=== PATIENT | female | born 1970 | race Caucasian/White ===

== ENCOUNTER 2020-02-06 10:10 | Outpatient (CLI) | payer BC, SELFPAY ==
--- NOTE | 2020-02-06 | ECG_ITS ---
Measurements Intervals [place] Rate: 86 P: 54 NE: 184 QRS: 144 QRSD: 81 T: 30 QT: 372 QTc: 445 Interpretive Statements SINUS RHYTHM RIGHT AXIS DEVIATION DELAYED PRECORDIAL R/S TRANSITION LOW QRS VOLTAGE- DIFFUSE LEADS BORDERLINE T WAVE ABNORMALITY- INFERIOR LEADS BORDERLINE ECG Electronically Signed On 02-06-2020 11:15:52 CDT by Jung Gunn D.O.
--- NOTE | ~2020-02-06 | MM_ITS ---
EXAMINATION: MM screening darío BI w lidia HISTORY: Screening mammogram TECHNIQUE: Craniocaudal and mediolateral oblique 3-D tomosynthesis images were obtained and synthetic 2-D images were generated. CAD analysis was submitted and interpreted. COMPARISON: 08/04/2016 bilateral digital screening mammogram BREAST PARENCHYMAL COMPOSITION: The breasts are heterogeneously dense, which may obscure small masses . FINDINGS: There is no evidence of suspicious mass, calcification, or architectural distortion to sugg est malignancy in either breast. There has been no suspicious interval change. IMPRESSION: 1. No mammographic evidence of malignancy. 2. Recommend routine screening mammography in one year. BI-RADS Category 1: Negative Reviewed, dictated and finalized at location A.
[2020-02-06 10:53] LABS: Alanine Aminotransferase 18 U/L (4-35); Alkaline Phosphatase 38 U/L (38-126); Anion Gap 4 mmol/L (8-16); Aspartate Amino Transferase 31 U/L (14-36); Bilirubin,Total 0.3 mg/dL (0.2-1.3); Blood Urea Nitrogen 23 mg/dL (7-17); Calcium 9.3 mg/dL (8.4-10.2); Carbon Dioxide 32 mmol/L (22-30); Chloride 100 mmol/L (98-107); Cholesterol 175 mg/dL (0-200); Estimated Glomerular Filt Rate 58; Glucose 86 mg/dL (65-105); HDL Direct 55 mg/dL; Sodium 136 mmol/L (137-145); Triglycerides 64 mg/dL (<150)
[2020-02-06 11:03] LABS: LDL Cholesterol Direct 91 mg/dL
== END 2020-02-06 10:11 | disposition home or self-care (01) ==
PROVIDERS: PCP Family Medicine; Visit Provider Family Medicine
DX: F31.9 Bipolar disorder, unspecified (principal); E78.2 Mixed hyperlipidemia; Z01.810 Encounter for preprocedural cardiovascular examination; Z12.31 Encounter for screening mammogram for malignant neoplasm of breast
CPT/HCPCS: 36415; 77063; 77067; 80053; 80061; 93005

== ENCOUNTER 2020-03-01 16:45 | Outpatient (CLI) | payer BC, SELFPAY ==
[2020-03-01 16:58] LABS: Basophils Percent Auto 0.9 % (0.2-1.2); Eosinophils Percent Auto 0.2 % (0-4.4); Hematocrit 40.9 % (37.0-47.0); Hemoglobin 13.6 g/dL (12.0-15.0); Immature Granulocyte Absolute 0.01 K/mm3 (0.00-0.031); Immature Granulocyte Percent A 0.2 % (0-0.5); Lymphocytes Absolute Auto 1.05 K/mm3 (0.9-3.2); Lymphocytes Percent Auto 22.6 % (18.3-44.2); Mean Corpuscular HGB Conc 33.3 g/dl (32-36); Mean Corpuscular Hemoglobin 31.1 pg (26-34); Mean Corpuscular Volume 93.4 fl (80-100); Monocytes Absolute Auto 0.4 K/mm3 (0.1-0.6); Monocytes Percent Auto 9.1 % (2.6-8.5); Neutrophils Absolute Auto 3.1 K/mm3 (1.3-6.7); Platelet Count Result 256 k/mm3 (150-375); Red Blood Count 4.38 M/mm3 (4.2-5.4); Red Cell Distribution Width 13.2 % (11.5-14.5); White Blood Count 4.6 K/mm3 (4.5-10.0)
[2020-03-01 17:44] LABS: Free T4 Free Thyroxine 0.81 ng/mL (0.78-2.19)
[2020-03-01 18:31] LABS: Vitamin B12 > 1000.0 pg/mL (239-931)
== END 2020-03-01 16:46 | disposition home or self-care (01) ==
PROVIDERS: PCP Family Medicine; Visit Provider Physician Assistant
DX: R45.1 Restlessness and agitation (principal); E03.9 Hypothyroidism, unspecified; E04.9 Nontoxic goiter, unspecified; E53.8 Deficiency of other specified B group vitamins
CPT/HCPCS: 36415; 82607; 84439; 84443; 85025

== ENCOUNTER → 2020-08-14 08:46 | Outpatient (CLI) | payer BC, SELFPAY ==
--- NOTE | ~2020-08-14 | MR_ITS ---
EXAMINATION: MR shoulder RT wo con DATE: 08/14/2020 09:24 INDICATION: Right shoulder pain TECHNIQUE: Magnetic resonance imaging (MRI) of the right shoulder was performed without intravenous c ontrast. Sequences included axial PD-weighted FS FSE, coronal oblique PD-weighted FS FSE, coronal obl ique T2-weighted FS FSE, sagittal PD-weighted FS FSE, and sagittal T1-weighted SE. COMPARISON: None. FINDINGS: Coracoacromial arch: The acromion undersurface is curved in morphology (type II). The coracoacromial ligament is normal. A cromioclavicular joint is normal. Rotator cuff: Mild supraspinatus and infraspinatus tendinopathy without discrete tear. The teres minor tendon is no rmal. The subscapularis and teres minor tendons are normal. Normal rotator cuff muscle bulk and signa l. Biceps tendon, glenoid labrum and glenohumeral cartilage: Full-thickness tear of the long head biceps tendon which appears to occur at the junction of the intr a and extra articular portion of the tendon. Moderate tendinopathy and fraying along the proximal tea r margin. The distal tear margin is retracted approximately 8 cm more inferiorly. Glenoid labrum is n ormal. Glenohumeral cartilage is normal. Fluid: Minimal glenohumeral joint effusion. There is also small amount of fluid within the empty long head b iceps tendon sheath. No loose osteochondral bodies. Mild increased fluid signal in the subacromial/brooks bdeltoid bursa consistent with minimal bursitis. Bones: Normal marrow signal with no edema, fracture or abnormal marrow replacing process. IMPRESSION: 1. Full-thickness tear at the junction of the intra-articular and extra articular portions of the merritt g head biceps tendon with 8 cm inferior retraction of the distal tear margin. 2. Mild supraspinatus and infraspinatus tendinopathy without discrete tear. Reviewed, dictated and finalized at location A. OPERATOR IMPRESSION: 1. Full-thickness tear at the junction of the intra-articular and extra articul ar portions of the long head biceps tendon with 8 cm inferior retraction of the distal tear margin. 2. Mild supraspinatus and infraspinatus tendinopathy without discrete tear.
== END ==
PROVIDERS: PCP Family Medicine; Visit Provider Nurse Practitioner Family
DX: S46.111A Strain of muscle, fascia and tendon of long head of biceps, right arm, initial encounter (principal); X58.XXXA Exposure to other specified factors, initial encounter
CPT/HCPCS: 73221

== ENCOUNTER → 2020-09-10 00:51 | Outpatient (CLI) | payer BC, SELFPAY ==
[2020-09-10 20:24] LABS: SARS-CoV-2 RNA PCR Negative
== END ==
PROVIDERS: PCP Family Medicine; Visit Provider Orthopaedic Surgery
DX: Z01.812 Encounter for preprocedural laboratory examination (principal); Z20.822 Contact with and (suspected) exposure to COVID-19
CPT/HCPCS: C9803; U0003; U0005

== ENCOUNTER 2020-09-13 01:15 | Day surgery (SDC) | payer BC, SELFPAY ==
[2020-09-05 10:50] VITALS: BMI 27.3
--- NOTE | 2020-09-13 06:51 | WPDHPUPDATE1 ---
History and Physical Update Update Date/Time: 09/13/20 06:51 History and Physical has been reviewed, including an updated exam of the patient. There are NO changes in the patient's condition. Covid test negative. Risks, benefits, and alternatives have been discussed and questions answered. Patient agrees to proceed with procedure.
--- NOTE | 2020-09-13 07:48 | WPDANESEPP ---
Anes - Eval Pre Procedure Procedure: Operation Date: 09/13/20 09:30 Proposed Procedures p Right Middle Trigger Finger Release - Chris Farmer MD Date/Time: 09/13/20 07:48 Pre Op Diagnosis: right middle trigger finger Patient Data Age: 50 Gender: F Height: 1.6 m Weight: 70 kg Allergies Allergy/AdvReac Type Severity Reaction Status Date / Time No Known Allergies Allergy Mild Verified 09/13/20 07:37 Home Medications Medication Instructions Recorded Confirmed Type fluoxetine 20 mg tablet 20 mg PO DAILY #90 tablet 07/19/19 09/13/20 Rx lamotrigine 200 mg tablet 200 mg PO BID 01/10/20 09/13/20 History sumatriptan succinate 100 mg tablet See Rx Instructions PO .COMPLEX 06/04/20 09/05/20 Rx #10 tablet levothyroxine 100 mcg tablet 100 mcg PO DAILY #90 tablet 06/20/20 09/13/20 Rx ascorbic acid (vitamin C) [Vitamin 1 g PO DAILY 09/05/20 09/13/20 History C] cholecalciferol (vitamin D3) 50 mcg PO DAILY 09/05/20 09/13/20 History [Vitamin D3] cyanocobalamin (vitamin B-12) 1,000 mcg PO DAILY 09/05/20 09/13/20 History [Vitamin B-12] quetiapine 50 mg PO TID 09/05/20 09/13/20 History Patient hx anesthesia problems: none Family hx anesthesia problems: none PMFSH Past Medical History Medical History Anxiety Arthritis Avulsion fracture Biceps strain Biceps tendon rupture Bicipital tendinitis of right shoulder Bipolar 1 disorder Breast ptosis Depression Encounter for general adult medical examination without abnormal findings Exposure to phentermine Hyperthyroidism Hypothyroidism Metacarpophalangeal joint pain of right hand Micromastia Nasal drainage Psoriasis Right shoulder pain Right shoulder pain Skin laxity SLAP tear of shoulder Tendinitis of right rotator cuff Trigger finger of right hand Trigger point with back pain Vision abnormalities Family History Family History Mother Depression Father Family history of sleep apnea Social History Social History Social History: Smoking status: Never smoker Second hand tobacco smoke exposure: No Alcohol intake: current Drinks per week: 2 Substance use: never Substance use type: does not use Living arrangements: with family Gender identity (if verbalized by the patient): Female Spiritual care concerns: No Exam Day of Procedure 09/13/20 07:48
[2020-09-13] MEDS: ACETAMINOPHEN 500 MG TABLET 1000 MG PO (07:53)
[2020-09-13 08:08] VITALS: BP 114/88; PULSE 77; RESP 16; TEMP 36.3; O2SAT 98
[2020-09-13] MEDS: KETOROLAC 15 MG/ML VIAL (*BKC) IV PUSH (08:08)
--- NOTE | 2020-09-13 09:22 | SUR.PREOP ---
Discussed delay, voices understanding.
--- NOTE | 2020-09-13 09:58 | WPDANESEPPF ---
Anes - Initial Pre Proc Eval Procedure: Operation Date: 09/13/20 09:30 Proposed Procedures p Right Middle Trigger Finger Release - Chris Farmer MD Date/Time: 09/13/20 09:58 Surgeon: Chris Farmer MD Pre Op Diagnosis: right middle trigger finger Patient Data Age: 50 Gender: F Height: 5 ft 3 in Weight: 72.8 kg Last Vital Signs Temp 36.3 C L 09/13/20 08:08 Pulse 77 09/13/20 08:08 Resp 16 09/13/20 08:08 BP 114/88 09/13/20 08:08 Pulse Ox 98 09/13/20 08:08 Allergies Allergy/AdvReac Type Severity Reaction Status Date / Time No Known Allergies Allergy Mild Verified 09/13/20 07:37 Home Medications Medication Instructions Recorded Confirmed Type fluoxetine 20 mg tablet 20 mg PO DAILY #90 tablet 07/19/19 09/13/20 Rx lamotrigine 200 mg tablet 200 mg PO BID 01/10/20 09/13/20 History sumatriptan succinate 100 mg tablet See Rx Instructions PO .COMPLEX 06/04/20 09/05/20 Rx #10 tablet levothyroxine 100 mcg tablet 100 mcg PO DAILY #90 tablet 06/20/20 09/13/20 Rx ascorbic acid (vitamin C) [Vitamin 1 g PO DAILY 09/05/20 09/13/20 History C] cholecalciferol (vitamin D3) 50 mcg PO DAILY 09/05/20 09/13/20 History [Vitamin D3] cyanocobalamin (vitamin B-12) 1,000 mcg PO DAILY 09/05/20 09/13/20 History [Vitamin B-12] quetiapine 50 mg PO TID 09/05/20 09/13/20 History Patient hx anesthesia problems: none Family hx anesthesia problems: none PMFSH Past Medical History Medical History Anxiety Arthritis Avulsion fracture Biceps strain Biceps tendon rupture Bicipital tendinitis of right shoulder Bipolar 1 disorder Breast ptosis Depression Encounter for general adult medical examination without abnormal findings Exposure to phentermine Hyperthyroidism Hypothyroidism Metacarpophalangeal joint pain of right hand Micromastia Nasal drainage Psoriasis Right shoulder pain Right shoulder pain Skin laxity SLAP tear of shoulder Tendinitis of right rotator cuff Trigger finger of right hand Trigger point with back pain Vision abnormalities Family History Family History Mother Depression Father Family history of sleep apnea Social History Social History Social History: Smoking status: Never smoker Second hand tobacco smoke exposure: No Alcohol intake: current Drinks per week: 2 Substance use: never Substance use type: does not use Living arrangements: with family Gender identity (if verbalized by the patient): Female Spiritual care concerns: No Anes - Eval Final PreProcedure Day of Procedure 09/13/20 09:58 Patient weight: overweight Heart: regular rate and rhythm Lungs: clear to auscultation Airway: Mallampati scale class II and special considerations poor dentition Neurological: alert and oriented Last oral intake: >/= 8 hours ASA classification: III Emergent: no Anesthetic plan: proceed Anesthesia type and monitoring: general GIVS and standard monitoring Informed Consent: The patient's anesthetic plan and its attendant risks and benefits were discussed with the patient/family/POA. Questions were solicited and answers provided to the satisfaction of the patient/family/POA.
[2020-09-13] MEDS: ceFAZolin 2 GM/D5W 50 ML 2 GM/50 ML BAG IVPB (10:18)
[2020-09-13] MEDS: BUPIVACAINE HCL 0.5% PF 30 ML VIAL INFILTRATE (10:29)
[2020-09-13 10:55] VITALS: BP 114/69; PULSE 67; RESP 10; O2SAT 100
[2020-09-13] MEDS: LACTATED RINGERS 1,000 ML 30 ML IV CONT (10:55)
--- NOTE | 2020-09-13 10:58 | P.OP_ITS ---
Procedure Note - Detailed Date of procedure: 09/13/20 Pre-op diagnosis: right middle trigger finger Post-op diagnosis: same Procedure performed: Release of A1 fernando right middle trigger finger Description of procedure: Indications: Patient is a 50-year-old woman with right hand middle trigger finger deformity. She has undergone cortisone injection which gave temporary relief. She presents now for operative treatment. What was done: Patient identified in the preoperative holding. Informed consent given. Operative extremity marked. Patient received intravenous antibiotics. Patient brought to the operating room where underwent conscious sedation by anesthesia team. Positioned supine on operating room table. Time-out performed confirming the patient, site of the surgery and the plan. Right hand prepped draped usual sterile surgical fashion using a ChloraPrep skin solution. Incision made in the palmar crease over the flexor tendon of the middle finger. Hemostasis obtained with bipolar cautery. Retractors placed in the flexor tendon identified. Thickening of the A1 fernando noted. Curved clamp placed under the fernando for protection of the tendon and the tendon released with a [place] blade. Good release noted. Finger taken through range of motion and no catching or triggering noted. Wound thoroughly irrigated with solution and closed with 4 0 nylon interrupted suture. 0.5% plain Marcaine used for local anesthetic. Sterile dressing applied. The patient was then woken from anesthesia, extubated and taken to the recovery room in stable condition. All sponge, needle, instrument counts were correct at the end of the case. Anesthesia: MAC Surgeon: Chris Farmer MD Estimated blood loss (mL): 5 Tourniquet time (min): 0 Drains: No Packing: No Pathology: none sent Complications: None Condition: stable Disposition: PACU
[2020-09-13 11:25] VITALS: BP 126/81; PULSE 64
[2020-09-13 11:55] VITALS: BP 109/69; PULSE 67
== END 2020-09-13 12:27 | disposition home or self-care (01) ==
PROVIDERS: PCP Family Medicine; Visit Provider Orthopaedic Surgery
PROC: (CPT 26055; principal; 2020-09-13 09:30)
DX: M65.331 Trigger finger, right middle finger (principal); E03.9 Hypothyroidism, unspecified; F31.9 Bipolar disorder, unspecified; F41.9 Anxiety disorder, unspecified
CPT/HCPCS: 26055; A9270; C9803; J0690; J1885; J2250; J2405; J2704; J3010; J7120; U0003; U0005

== ENCOUNTER 2021-09-24 10:15 | Outpatient (CLI) | payer BC, SELFPAY ==
[2021-09-24 10:36] LABS: Basophils Percent Auto 0.6 % (0.2-1.2); Eosinophils Percent Auto 0.2 % (0-4.4); Hematocrit 43.4 % (37.0-47.0); Hemoglobin 14.8 g/dL (12.0-15.0); Immature Granulocyte Absolute 0.01 K/mm3 (0.00-0.031); Immature Granulocyte Percent A 0.2 % (0-0.5); Lymphocytes Absolute Auto 1.34 K/mm3 (0.9-3.2); Lymphocytes Percent Auto 24.7 % (18.3-44.2); Mean Corpuscular HGB Conc 34.1 g/dl (32-36); Mean Corpuscular Hemoglobin 30.8 pg (26-34); Mean Corpuscular Volume 90.4 fl (80-100); Mean Platelet Volume 8.9 fl (7.4-10.4); Monocytes Absolute Auto 0.5 K/mm3 (0.1-0.6); Neutrophils Absolute Auto 3.5 K/mm3 (1.3-6.7); Neutrophils Percent Auto 65.3 % (45.5-73.1); Platelet Count Result 275 k/mm3 (150-375); Red Cell Distribution Width 14.1 % (11.5-14.5); White Blood Count 5.4 K/mm3 (4.5-10.0)
[2021-09-24 10:48] LABS: Alanine Aminotransferase 15 U/L (4-35); Albumin Level 4.5 g/dL (3.5-5.1); Alkaline Phosphatase 51 U/L (38-126); Anion Gap 6 mmol/L (8-16); Aspartate Amino Transferase 26 U/L (14-36); Bilirubin,Total 0.4 mg/dL (0.2-1.3); Blood Urea Nitrogen 19 mg/dL (7-17); Carbon Dioxide 30 mmol/L (22-30); Chloride 102 mmol/L (98-107); Estimated Glomerular Filt Rate > 60; Glucose 87 mg/dL (65-110); Potassium 4.1 mmol/L (3.4-5.0); Sodium 138 mmol/L (137-145)
[2021-09-24 11:18] LABS: Total Triiodothyronine (T3) 1.01 NG/ML (0.97-1.69)
[2021-09-24 11:23] LABS: Free T4 Free Thyroxine 0.76 ng/mL (0.78-2.19)
== END 2021-09-24 10:16 | disposition home or self-care (01) ==
LOC: ANHLAB 10:17
PROVIDERS: PCP Family Medicine; Visit Provider Nurse Practitioner Gerontology
DX: F31.9 Bipolar disorder, unspecified (principal); E03.9 Hypothyroidism, unspecified
CPT/HCPCS: 36415; 80053; 84439; 84443; 84480; 85025

== ENCOUNTER 2021-10-15 12:38 | Outpatient (CLI) | payer BC, SELFPAY ==
--- NOTE | 2021-10-16 13:51 | WPDPFTINT ---
PFT Procedure Performed PFT Procedure Performed Spirometry with Pre/Post Bronchodilator Plethysmography (Lung Vol) Diffusing Cap (DLCO) Flow Vol Loop PFT Interpretation DOS: 10/15/2021 REQUESTING: Droota Nguyễn NP REASON FOR TESTING: Shortness of breath PULMONARY FUNCTION TESTS Results are reliable and reproducible Spirometry: FEV1 is 97% predicted, 2.54 L, normal. FVC is 96% predicted, 3.14 L, normal. The FEV1/ FVC ratio is 81% predicted, normal. No bronchodilator was administered. Lung volumes: Total lung capacity is 105% predicted, 5.14 L, normal. The slow vital capacity is 103% predicted, 2.82 L. The expiratory reserve volume is 101% predicted, normal. Residual volume 101% predicted, normal. No hyperinflation or air trapping. Airway resistance is increased. Diffusion: DLCO is 94% predicted. Normal. Flow volume loop: Normal. IMPRESSION: This spirometry is normal, lung volumes are normal, normal diffusion capacity and a normal flow volume loop. No bronchodilator was given. There is a difference between the forced vital capacity and the slow vital capacity of 210 ml which is more than expected. This suggests a small airways pattern. This is a subtle finding that may have clinical significance. Consider a trial of bronchodilator therapy. Adina Santos MD
== END 2021-10-15 12:39 | disposition home or self-care (01) ==
PROVIDERS: PCP Family Medicine; Visit Provider Nurse Practitioner Gerontology
DX: R06.02 Shortness of breath (principal)
CPT/HCPCS: 94375; 94726; 94729

== ENCOUNTER 2022-01-08 15:16 | Outpatient (CLI) | payer BC, SELFPAY ==
--- NOTE | ~2022-01-08 | XR_ITS ---
XR foot RT min 3V DATE: 01/08/2022 15:49 INDICATION: Bilateral plantar foot pain TECHNIQUE: 4 views COMPARISON: None FINDINGS: Distal Achilles tendon calcification and plantar calcaneal enthesopathy. Hammertoe deformities of the second through fifth digits. Mild hallux valgus and bunion deformity. Mild osteoarthritis at the first metatarsophalangeal joint. No fracture, dislocation, periosteal reaction or bone destruction is detected. IMPRESSION: Plantar calcaneal enthesopathy Distal Achilles tendon calcification Mild hallux valgus and bunion deformity Mild osteoarthritis at first metatarsophalangeal joint Second through fifth hammertoe deformities Reviewed, dictated and finalized at location B.
== END 2022-01-08 15:17 | disposition home or self-care (01) ==
PROVIDERS: PCP Family Medicine; Visit Provider Physician Assistant
DX: M20.11 Hallux valgus (acquired), right foot (principal); M19.071 Primary osteoarthritis, right ankle and foot; M77.31 Calcaneal spur, right foot
CPT/HCPCS: 73630

== ENCOUNTER 2022-04-04 15:09 | Outpatient (CLI) | payer BC, SELFPAY ==
--- NOTE | ~2022-04-04 | MM_ITS ---
EXAMINATION: MM screening darío BI w lidia HISTORY: Screening TECHNIQUE: Craniocaudal and mediolateral oblique 3-D tomosynthesis images were obtained and synthetic 2-D images were generated. CAD analysis was submitted and interpreted. COMPARISON: Comparison to multiple prior studies sequentially, with oldest reviewed study dated 02/14. BREAST PARENCHYMAL COMPOSITION: There are scattered areas of fibroglandular density. FINDINGS: There is no evidence of suspicious mass, calcification, or architectural distortion to sugg est malignancy in either breast. There has been no suspicious interval change. IMPRESSION: 1. No mammographic evidence of malignancy. 2. Recommend routine screening mammography in one year. BI-RADS Category 1: Negative Reviewed, dictated and finalized at location A.
== END 2022-04-04 15:10 | disposition home or self-care (01) ==
PROVIDERS: PCP Family Medicine; Visit Provider Physician Assistant
DX: Z12.31 Encounter for screening mammogram for malignant neoplasm of breast (principal)
CPT/HCPCS: 77063; 77067

== ENCOUNTER 2022-11-04 11:04 | Outpatient (CLI) | payer BC, SELFPAY ==
[2022-11-04 11:39] LABS: Basophils Percent Auto 0.5 % (0.2-1.2); Eosinophils Absolute Auto 0.1 K/mm3 (0-0.3); Eosinophils Percent Auto 1.2 % (0-4.4); Hematocrit 42.1 % (37.0-47.0); Hemoglobin 14.5 g/dL (12.0-15.0); Immature Granulocyte Absolute 0.01 K/mm3 (0.00-0.031); Immature Granulocyte Percent A 0.2 % (0-0.5); Lymphocytes Absolute Auto 1.31 K/mm3 (0.9-3.2); Lymphocytes Percent Auto 32.5 % (18.3-44.2); Mean Corpuscular HGB Conc 34.4 g/dl (32-36); Mean Corpuscular Hemoglobin 30.9 pg (26-34); Mean Corpuscular Volume 89.6 fl (80-100); Mean Platelet Volume 9.1 fl (7.4-10.4); Monocytes Absolute Auto 0.3 K/mm3 (0.1-0.6); Monocytes Percent Auto 7.2 % (2.6-8.5); Neutrophils Absolute Auto 2.4 K/mm3 (1.3-6.7); Neutrophils Percent Auto 58.4 % (45.5-73.1); Platelet Count Result 215 k/mm3 (150-375)
[2022-11-04 11:47] LABS: Alanine Aminotransferase 22 U/L (6-35); Albumin Level 4.6 g/dL (3.5-5.1); Alkaline Phosphatase 55 U/L (38-126); Anion Gap 9 mmol/L (8-16); Aspartate Amino Transferase 36 U/L (14-36); Bilirubin,Total 0.7 mg/dL (0.2-1.3); Blood Urea Nitrogen 8 mg/dL (7-17); Calcium 9.3 mg/dL (8.4-10.2); Carbon Dioxide 26 mmol/L (22-30); Chloride 102 mmol/L (98-107); Cholesterol 176 mg/dL (0-200); Estimated Glomerular Filt Rate > 60; Glucose 88 mg/dL (65-110); HDL Direct 53 mg/dL; Potassium 4.1 mmol/L (3.4-5.0); Sodium 137 mmol/L (137-145); Triglycerides 92 mg/dL (<150)
[2022-11-04 11:58] LABS: LDL Cholesterol Direct 98 mg/dL
[2022-11-04 12:18] LABS: Total Triiodothyronine (T3) 0.85 NG/ML (0.97-1.69)
[2022-11-04 12:44] LABS: Vitamin B12 > 1000.0 pg/mL (239-931)
[2022-11-04 12:44] LABS: Free T4 Free Thyroxine 1.22 ng/mL (0.78-2.19)
[2022-11-10 01:47] LABS: Vitamin D 1,25 (OH)2 Total 44 pg/mL (18-72); Vitamin D2 1,25 (OH)2 <8 pg/mL; Vitamin D3 1,25 (OH)2 44 pg/mL
== END 2022-11-04 11:05 | disposition home or self-care (01) ==
PROVIDERS: PCP Family Medicine; Visit Provider Nurse Practitioner Gerontology
DX: E55.9 Vitamin D deficiency, unspecified (principal); E03.9 Hypothyroidism, unspecified; F32.9 Major depressive disorder, single episode, unspecified; R03.0 Elevated blood-pressure reading, without diagnosis of hypertension
CPT/HCPCS: 36415; 80053; 80061; 82607; 82652; 84439; 84443; 84480; 85025

== ENCOUNTER 2022-12-28 09:54 | Emergency (ER) | payer BC, SELFPAY ==
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
[2022-12-28 10:45] VITALS: BP 127/91; PULSE 88; RESP 16; TEMP 36.8; O2SAT 97
[2022-12-28] MEDS: HYDROcodone/acetaminophen (*CRX) 5-325 MG TABLET 1 TAB PO (10:45)
--- NOTE | 2022-12-28 11:45 | ECG_ITS ---
Measurements Intervals [place] Rate: 77 P: 67 UT: 192 QRS: 106 QRSD: 88 T: 63 QT: 395 QTc: 448 Interpretive Statements SINUS RHYTHM RIGHT AXIS DEVIATION DELAYED PRECORDIAL R/S TRANSITION LOW QRS VOLTAGE IN PRECORDIAL LEADS BASELINE ARTIFACT- I, III, AVR, AVL, AVF BORDERLINE ECG COMPARED TO ECG 02/06/2020 10:40:18 NO SIGNIFICANT CHANGES Electronically Signed On 12-28-2022 18:44:02 CDT by Jung Gunn D.O.
[2022-12-28] MEDS: KETOROLAC 30 MG/ML VIAL (*BKC) IM (12:39)
[2022-12-28] MEDS: HYDROmorphone HCL INJ (*CRX) 1 MG/ML SYR IM (12:39)
== END 2022-12-28 12:39 | disposition home or self-care (01) ==
PROVIDERS: Emergency Provider Physician Assistant; PCP Family Medicine
DX: S22.41XA Multiple fractures of ribs, right side, initial encounter for closed fracture (principal); S50.01XA Contusion of right elbow, initial encounter; S09.90XA Unspecified injury of head, initial encounter; R94.31 Abnormal electrocardiogram [ECG] [EKG]; V28.09XA Other motorcycle driver injured in noncollision transport accident in nontraffic accident, initial encounter
CPT/HCPCS: 70450; 71250; 73080; 93005; 96372; 99284; A9270; J1170; J1885

== ENCOUNTER → 2023-02-10 03:21 | Day surgery (SDC) | payer BC, SELFPAY ==
[2023-02-05 11:08] VITALS: BMI 34.5
--- NOTE | 2023-02-09 14:38 | WPDANESEPPF ---
Anes - Initial Pre Proc Eval Procedure: Operation Date: 02/10/23 11:30 Proposed Procedures p Screening Colonoscopy - Tino Escobedo MD Date/Time: 02/09/23 14:38 Surgeon: Tino Escobedo MD Pre Op Diagnosis: neoplasm screening Patient Data Age: 53 Gender: F Height: 1.6 m Weight: 88.5 kg Allergies Allergy/AdvReac Type Severity Reaction Status Date / Time No Known Allergies Allergy Mild Verified 02/05/23 11:09 Home Medications Medication Instructions Recorded Confirmed Type lamotrigine 200 mg tablet 200 mg PO BID 01/10/20 02/05/23 History sumatriptan succinate 100 mg tablet See Rx Instructions .Route 01/20/23 02/05/23 Rx .COMPLEX #27 tabs Ozempic 1 DIRECTED 02/05/23 History buspirone 10 mg tablet 10 mg PO TID 02/05/23 02/05/23 History fluoxetine 40 mg capsule 40 mg PO DAILY 02/05/23 02/05/23 History fluticasone propionate 50 See Rx Instructions .Route 02/05/23 02/05/23 History mcg/actuation nasal .COMPLEX PRN Allergy Symptoms spray,suspension levothyroxine 100 mcg tablet 100 mcg PO DAILY 02/05/23 02/05/23 History montelukast 10 mg tablet 10 mg PO DAILY 02/05/23 02/05/23 History quetiapine 200 mg tablet,extended 200 mg PO BID 02/05/23 02/05/23 History release 24 hr Results Review: All pre-operative results and documents have been reviewed as part of the pre-operative evaluation. [facility] Past Medical History Medical History Anxiety Arthritis Avulsion fracture Biceps strain Biceps tendon rupture Bicipital tendinitis of right shoulder Bipolar 1 disorder Breast ptosis Depression Encounter for general adult medical examination without abnormal findings Exposure to phentermine Hyperthyroidism Hypothyroidism Metacarpophalangeal joint pain of right hand [place]romast[place] Nasal drainage Psoriasis Right shoulder pain Right shoulder pain Skin laxity SLAP tear of shoulder Tendinitis of right rotator cuff Trigger finger of right hand Trigger point with back pain Vision abnormalities Family History Family History Mother Depression Father Family history of sleep apnea Social History Social History Social History: Smoking status: Never smoker Second hand tobacco smoke exposure: No Alcohol intake: current Substance use: never Substance use type: does not use Living arrangements: with family Occupation/Education: occupation Gender identity (if verbalized by the patient): Female Sexual Orientation (if Verbalized by the Patient): Straight or Heterosexual Spiritual care concerns: No Anes - Eval Final PreProcedure Day of Procedure 02/09/23 14:38 Patient weight: obese Heart: regular rate and rhythm Lungs: clear to auscultation Airway: Mallampati scale class II Neurological: alert and oriented Last oral intake: >/= 8 hours ASA classification: III Emergent: no Anesthetic plan: proceed Anesthesia type and monitoring: general GIVS and standard monitoring Results Review: All pre-operative results and documents have been reviewed as part of the pre-operative evaluation. Informed Consent: The patient's anesthetic plan and its attendant risks and benefits were discussed with the patient/family/POA. Questions were solicited and answers provided to the satisfaction of the patient/family/POA.
[2023-02-10 08:28] VITALS: BP 130/72; PULSE 67; RESP 18; TEMP 36.4; O2SAT 100
--- NOTE | 2023-02-10 08:29 | SUR.PREOP ---
Patient states she doesnt think she received her instructions in the mail and said she only fasted yesterday. She did not drink any prep. Instructions printed and given to patient with explanation as well as phone number for the office to reschedule.
== END ==
PROVIDERS: PCP Family Medicine; Visit Provider Internal Medicine Gastroenterology
PROC: 0DJD8ZZ Inspection of Lower Intestinal Tract, Via Natural or Artificial Opening Endoscopic (ICD-10-PCS; CPT 45378; principal; 2023-02-10 11:30)
DX: Z12.11 Encounter for screening for malignant neoplasm of colon (principal); Z53.8 Procedure and treatment not carried out for other reasons
CPT/HCPCS: 99211; G0463

== ENCOUNTER 2024-01-26 09:21 | Outpatient (CLI) | payer BC, SELFPAY ==
[2024-01-26 09:56] LABS: Hematocrit 48.8 % (37.0-47.0); Hemoglobin 16.2 g/dL (12.0-15.0); Mean Corpuscular HGB Conc 33.2 g/dl (32-36); Mean Corpuscular Hemoglobin 30.1 pg (26-34); Mean Corpuscular Volume 90.7 fl (80-100); Mean Platelet Volume 9.5 fl (7.4-10.4); Platelet Count Result 263 k/mm3 (150-375); Red Blood Count 5.38 M/mm3 (4.2-5.4); Red Cell Distribution Width 13.7 % (11.5-14.5); White Blood Count 5.1 K/mm3 (4.5-10.0)
[2024-01-26 10:20] LABS: Alanine Aminotransferase 31 U/L (6-35); Albumin Level 5.1 g/dL (3.5-5.1); Alkaline Phosphatase 71 U/L (38-126); Anion Gap 8 mmol/L (4-12); Aspartate Amino Transferase 33 U/L (14-36); Bilirubin,Total 0.5 mg/dL (0.2-1.3); Blood Urea Nitrogen 18 mg/dL (7-17); Calcium 10.5 mg/dL (8.4-10.2); Carbon Dioxide 31 mmol/L (22-30); Chloride 102 mmol/L (98-107); Cholesterol 253 mg/dL (0-200); Estimated Glomerular Filt Rate 58; Glucose 99 mg/dL (65-110); HDL Direct 65 mg/dL; Sodium 141 mmol/L (137-145); Triglycerides 141 mg/dL (<150)
[2024-01-26 10:32] LABS: LDL Cholesterol Direct 133 mg/dL
[2024-01-26 10:38] LABS: Free T4 Free Thyroxine 1.04 ng/mL (0.78-2.19)
== END 2024-01-26 09:22 | disposition home or self-care (01) ==
LOC: ANHLAB 09:21
PROVIDERS: PCP Family Medicine; Visit Provider Physician Assistant
DX: D72.819 Decreased white blood cell count, unspecified (principal); E03.9 Hypothyroidism, unspecified; E07.9 Disorder of thyroid, unspecified; R03.0 Elevated blood-pressure reading, without diagnosis of hypertension
CPT/HCPCS: 36415; 80053; 80061; 84439; 84443; 85027

== ENCOUNTER 2024-10-25 21:47 | Emergency (ER) | payer BC, SELFPAY ==
[2024-10-25] VITALS (9 sets, daily range): BP systolic 141–145; BP diastolic 89–93; PULSE 74; RESP 15; TEMP 36.1; O2SAT 97–99
--- OUTSIDE RECORDS SUMMARY | 2024-10-25 21:50 | XMS_ITS | Clinical Summary ---
Author Organization [facility] Address [address] [place] [address] Care Team Providers Care Cooking Casing And Drying Supervisor Name Role Phone Avril Avina MD Primary Care Provider + Source Comments [facility],non-owned Affiliates and Associated Physician Practices is amultiple site organization consisting of ambulatory clinics and hospital sitesin [place], [place], [place] and [place]. This disclosure is being madepursuant to the Care Everywhere program and may not contain all information available regarding this patient. Last updated 18.[facility] Allergies No known active allergies Medications * Be aware that medications may not be up to date on this document. Alwaysverify current medications with the patient. LEVOTHYROXINE SODIUM PO Active Sertraline HCl (ZOLOFT PO) Active benzonatate (TESSALON) 200 MG capsuleIndication s:Acute streptococcal pharyngitis Take 1 Cap by mouth 3 times daily as needed for Cough 30 Cap 7 Active Additional Information Patient not taking.Reported on 10/01/2017 FLUoxetine (PROZAC) 20 MG tablet Take 20 mg by mouth once daily Active lamoTRIgine (LAMICTAL) 100 MG tablet Take 100 mg by mouth 2 times daily Active Immunizations Immunization Administration Dates Next Due INFLUENZA VACCINE, QUADR. (F LUZONE; FLULAVAL; FLUARIX; AFLURIA QUADRIVALENT; 6MO+), 0.5 ML (IIV4) 04/25/2019 Social History Tobacco Use Types Packs/Day Years Used Date Smoking Tobacco: Never Smokeless Tobacco: Never Comments No Sex and Gender Information Value Date Recorded Sex Assigned at Not on file Legal Sex Female 11:24 AM CDT Gender Identity Not on file Sexual Orientation Not on file Last Filed Vital Signs Vital Sign Reading Time Taken Comments Blood Pressure 118/72 11/11/2019 6:16 PM CDT Pulse 70 11/11/2019 6:16 PM CDT Temperature 36.7 C (98.1 F) 11/11/2019 6:16 PM CDT Respiratory Rate 20 11/11/2019 6:16 PM CDT Oxygen Saturation 97% 09/12/2016 12:01 PM CDT Inhaled Oxygen Concentration - - Weight 72.6 kg (160 lb) 10/26/2017 2:49 PM CDT Height 160 cm (5' 3 ) 10/01/2017 1:59 PM CDT Body Mass Index 28.34 10/01/2017 1:59 PM CDT Plan of Treatment Health Maintenance Due Date Last Done Comments COLOGUARD (AGES 45-75) - COL ON CA SCREENING 1969 COLON MONITORING 1969 COLONOSCOPY - COLON CA SCREENING 1969 CT COLONOGRAPHY - COLON CA SCREENING 1969 Colorectal Cancer Screening 1969 FIT - COLON CA SCREENING 1969 FLEX SIG - COLON CA SCREENING 1969 LIPID TESTING 1969 MAMMOGRAM 1969 HIV SCREENING 01/10/1984 HEPATITIS C SCREENING 01/05/1987 DTAP/TDAP/TD VACCINES (1 - Tdap) 01/10/1988 HEPATITIS B VACCINE (1 of 3 - 19+ 3-dose series) 01/10/1988 PNEUMOCOCCAL VACCINE 50+ (1 of 1 - PCV) 2019 ZOSTER VACCINE (1 of 2) 2019 COVID-19 VACCINE (1 - 2023-2 5 season) 2024 DEPRESSION SCREENING 06/22/2024 INFLUENZA VACCINE (Season Ended) 2025 04/25/20 19 HIB VACCINE Aged Out No longer eligi ble based on patient's age to complete this topic HPV VACCINE Aged Out No longer eligi ble based on patient's age to complete this topic MENINGOCOCCAL (Group B) VACC INE SHARED DECISION-MAKING Aged Out No longer eligibl e based on patient's age to complete this topic MENINGOCOCCAL GROUPS A/C/Y/W VACCINE Aged Out No longer eligible b ased on patient's age to complete this topic Insurance ANTHEM Care Teams Cooking Casing And Drying Supervisor Relationship Specialty Start Date End Date Avril Avina MD [address] [place] [address] PCP - General Family Medicine 10/01/17
--- OUTSIDE RECORDS SUMMARY | 2024-10-25 21:50 | XMS_ITS | Clinical Summary ---
Author Organization [facility] Address [address] [place] [address] Care Team Providers Care Relations Specialist Name Role Phone Avril Avina MD Primary Care Provider Allergies No known active allergies Medications hydrOXYzine (ATARAX) 50 mg tablet 0 Active SUMAtriptan (IMITREX) 100 mg tabletIndicatio ns:Migraine Take 100 mg by mouth once as needed for migraine Active LORazepam (ATIVAN) 0.5 mg tablet Take 0.5 mg by mouth every 6 (six) hours as needed for anxiety Active topiramate (TOPAMAX) 25 mg tablet 0 Active lamoTRIgine (LaMICtal) 200 mg tablet TK 1 T PO BID 0 Active Ventolin HFA 90 mcg/actuation inhaler Inhale 2 puffs every 6 (six) hours as needed for shortness of breath 1 Inhaler 11 0 Active levothyroxine (SYNTHROID) 100 mcg tablet Take 1 tablet (100 mcg total) by mouth packaging assembler before breakfast 30 tablet 3 0 Active fluticasone propionate (FLONASE) 50 mcg/actuation nasal spray Administer 2 sprays into each nostril 2 (two) times a day 16 g 11 1 Active fluticasone propion-salmete roL (ADVAIR DISKUS) 250-50 mcg/dose diskus inhaler Inhale 1 puff 2 (two) times a day Rinse mouth with water after use. Do not swallow. 60 each 3 1 Active cetirizine (ZyrTEC) 10 mg tablet 2 Active FLUoxetine (PROzac) 20 mg capsule Take by mouth daily 1 Active QUEtiapine XR (SEROquel XR) 200 mg 24 hr tablet Take 200 mg by mouth 2 (two) times a day 1 Active progesterone 50 mg/mL injection Inject into the muscle as instructed daily Active zolpidem (AMBIEN) 5 mg tabletIndicatio ns:SHASHA (obstructive sleep apnea) TAKE 1 BY MOUTH AT BEDTIME FOR SLEEP FOR 1 DOSE 1 tablet 2 Active Active Problems Problem Noted Date Diagnosed Date Snoring 07/23/2021 Assessment & Plan (07/23/2021 12:04 PM HEALTH NAVIGATOR): The patient was diagnosed with obstructive sleep apnea in the distant past. I will have the patient sign a release to obtain the old sleep studies from [facility]. She currently is using CPAP at 5 cm water pressure and has daytime fatigue. I have recommended proceeding with a nocturnal polysomnogram with a split night protocol if necessary and no MSLT. Allergic rhinitis 10/06/2020 Assessment & Plan (10/06/2020 2:15 PM CDT): Continue with Flonase and Zyrtec. Chronic cough 07/07/2019 Assessment & Plan (10/06/2020 2:14 PM CDT): Continue with Flonase and Zyrtec. After stopping bronchodilators she started to have wheezing and shortness for breath. I will resume Advair and albuterol inhaler. 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 Continue with Flonase and Zyrtec. Patient states she felt much better after bronchodilators. Her PFTs do not show obstruction and methacholine challenge test is normal. May have placebo effect. Assessment & Plan (11/03/2019 11:30 AM CDT): I will continue with Zyrtec. Patient was advised to use Flonase twice a day regularly. I will give him samples of Bevespi and follow her symptoms. Assessment & Plan (08/05/2019 12:25 PM HEALTH NAVIGATOR): Continue with Flonase twice a day. Add Zyrtec in the morning. Assessment & Plan (07/07/2019 8:59 AM HEALTH NAVIGATOR): I will obtain CBC with differential, IgE level, full set of PFTs with methacholine challenge test. Start her on Flonase twice a day. Obtain records from ENT. Depending on the labs and PFTs we will make further management plan. Migraine with aura 01/03/2014 [facility]26[facility]2016[facility] Assessment & Plan (10/06/2020 2:16 PM CDT): Continue with Lamictal. Psoriasis 11/05/2013 Overview (09/26/2016): OTHER PSORIASIS Psoriasis with arthropathy 11/05/2013 Overview (09/26/2016): PSORIATIC ARTHROPATHY Anxiety state 11/05/2013 Overview (09/26/2016): ANXIETY STATE NOS Resolved Problems Problem Noted Date Diagnosed Date Resolved Date Benign hypertension 11/05/2013 10/07/19 21 Overview (09/26/2016): BENIGN HYPERTENSION Immunizations Immunization Administration Dates Next Due Influenza, Quadrivalent, Spl it, Preservative Free, Intramuscular 04/25/2019 Tdap 02/15/2019 Surgical History Surgery Date Site/Laterality Comments TONSILLECTOMY Medical History Medical History Date Comments Chronic cough 07/07/2019 Psoriasis with arthropathy (HCC) 11/05/2013 PSORIATIC ARTHROPATHY Hypothyroidism 11/05/2013 HYPOTHYROIDISM N OS Family History Medical History Relation Name Comments Sleep apnea Father Depression Mother Relation Name Status Comments Father Alive Mother Alive Social History Tobacco Use Types Packs/Day Years Used Date Smoking Tobacco: Never Smokeless Tobacco: Never Personal Safety Answer Date Recorded Getting School Help Needed Not on file 09/04 Comments Unknown Sex and Gender Information Value Date Recorded Sex Assigned at Not on file Legal Sex Female 12:23 AM HEALTH NAVIGATOR Gender Identity Not on file Sexual Orientation Not on file Obstetrics History Last Filed Vital Signs Vital Sign Reading Time Taken Comments Blood Pressure 124/64 07/23/2021 11:29 AM HEALTH NAVIGATOR Pulse 94 07/23/2021 11:29 AM HEALTH NAVIGATOR Temperature 36.2 C (97.2 F) 07/23/2021 11:29 AM HEALTH NAVIGATOR Respiratory Rate 18 07/23/2021 11:29 AM HEALTH NAVIGATOR Oxygen Saturation 97% 07/23/2021 11:29 AM HEALTH NAVIGATOR Inhaled Oxygen Concentration - - Weight 86.2 kg (190 lb) 07/23/2021 11:29 AM HEALTH NAVIGATOR Height 157.5 cm (5' 2 ) 04/03/2020 3:22 PM CDT Body Mass Index 34.75 04/03/2020 3:22 PM CDT Plan of Treatment Health Maintenance Due Date Last Done Comments Breast Cancer Screening-Mammogram 1969 Cervical Cancer Screening 1969 Colon Cancer Screening-Colonoscopy 1969 Depression Screening 1969 Hepatitis C Screening 1969 Hepatitis B Screening 1987 Regular Well Visit/Exam 18-64 1987 Zoster Vaccine (1 of 2) 2019 Influenza Vaccine (#1) 2024 04/25/2019 DTaP/Tdap/Td Vaccine (2 - Td or Tdap) 02/15/2029 02/15/2019 Pneumococcal vaccine <65 Aged Out No longer eligible based on patient's age to complete [place] [address] [employer] CHOICE ANTHEM ACCESS CHOICE ANTHEM ACCESS CHOICE Care Teams Relations Specialist Relationship Specialty Start Date End Date Avril Avina MD [address] [place] [address] PCP - General Family Medicine 04/25/19
--- OUTSIDE RECORDS SUMMARY | 2024-10-25 21:50 | XMS_ITS | Encounter Summary ---
Author Organization [facility] Address [address] [place] [address] Phone Care Team Providers Care Vinegar Maker Name Role Phone Avril Avina MD Primary Care Provider [phone] Encounter Details Date Type Department Care Team (Latest Contact Info) Description 05/18/2024 Transcribe [facility] [address] [place] [id number] Lamonte Silva MD [address] [place], [place] [address] Pre-op testing (Primary Dx) Social History Tobacco Use Types Packs/Day Years Used Date Smoking Tobacco: Never Smokeless Tobacco: Never Alcohol Use Standard Drinks/Week Comments Not Currently 0 (1 standard drink = 0.6 oz pur e alcohol) Comments Unknown Sex and Gender Information Value Date Recorded Sex Assigned at Not on file Legal Sex Female 11:11 PM CDT Gender Identity Not on file Sexual Orientation Not on file documented as of this encounter Plan of Treatment Not on file documented as of this encounter Results * POTASSIUM (K) (05/23/2024 1:21 PM NIGHT WAREHOUSE SELECTOR) POTASSIUM 3.8 3.5 - 5.1 mmol/L 05/23/2024 2:02 PM NIGHT WAREHOUSE SELECTOR [facility] Blood Venipuncture / Unknown 05/23/2024 1:21 PM NIGHT WAREHOUSE SELECTOR 05/23/2024 1:32 PM NIGHT WAREHOUSE SELECTOR us Lamonte Silva MD CHEMISTRY ORDERABLES Final Re sult [facility] [place] [address] documented in this encounter Visit Diagnoses Diagnosis Pre-op testing- Primary Preoperative examination, unspecified documented in this encounter Care Teams Vinegar Maker Relationship Specialty Start Date End Date Avril Avina MD [address] [facility] [address] [place] [address] PCP - General Family Medicine 05/23/24 documented as of this encounter
--- OUTSIDE RECORDS SUMMARY | 2024-10-25 21:50 | XMS_ITS | Referral Summary ---
Author Organization [facility] Address [address] [place] [address] Care Team Providers Care Director Of Psychology Name Role Phone Avril Avina MD Primary [...] 1 tablet (100 mcg total) by mouth early years teacher before breakfast 30 tablet 3 0 Active [...] 07/23/2021 Assessment & Plan (07/23/2021 12:04 PM TRENCH DIGGER): The patient was diagnosed with obstructive sleep apnea in the distant past. I will have the patient sign a release to obtain the old sleep studies from [facility]. She currently is using CPAP at 5 [...] symptoms. Assessment & Plan (08/05/2019 12:25 PM TRENCH DIGGER): Continue with Flonase twice a day. Add Zyrtec in the morning. Assessment & Plan (07/07/2019 8:59 AM TRENCH DIGGER): I will obtain CBC with differential, IgE level, full set of PFTs with methacholine challenge test. Start her on Flonase twice a day. Obtain records from ENT. Depending on the labs and PFTs we will make further management plan. Migraine with aura 01/03/2014 [facility]09[facility]26/2016[facility] Assessment & Plan [...] it, Preservative Free, Intramuscular 04/25/2019 Tdap 02/15/2019 Social History Tobacco Use Types Packs/Day Years Used Date Smoking Tobacco: Never Smokeless Tobacco: Never Personal Safety Answer Date Recorded Getting School Help Needed Not on file 09/04 Comments Unknown Sex and Gender Information Value Date Recorded Sex Assigned at Not on file Legal Sex Female 12:23 AM TRENCH DIGGER Gender Identity Not on file Sexual Orientation Not on file Last Filed Vital Signs Vital Sign Reading Time Taken Comments Blood Pressure 124/64 07/23/2021 11:29 AM TRENCH DIGGER Pulse 94 07/23/2021 11:29 AM TRENCH DIGGER Temperature 36.2 C (97.2 F) 07/23/2021 11:29 AM TRENCH DIGGER Respiratory Rate 18 07/23/2021 11:29 AM TRENCH DIGGER Oxygen Saturation 97% 07/23/2021 11:29 AM TRENCH DIGGER Inhaled Oxygen Concentration - - Weight 86.2 kg (190 lb) 07/23/2021 11:29 AM TRENCH DIGGER Height 157.5 cm (5' 2 ) 04/03/2020 3:22 PM CDT Body Mass Index 34.75 04/03/2020 3:22 PM CDT Plan of Treatment Not on file Insurance [employer] CHOICE [employer] ANTHEM ACCESS CHOICE Care Teams Director Of Psychology Relationship Specialty Start Date End Date Avril Avina MD [address] [place], [place] [id number] PCP - General Family Medicine 04/25/19
--- OUTSIDE RECORDS SUMMARY | 2024-10-25 21:50 | XMS_ITS | Data Portability ---
Author Organization [email or web address], Main Office Address [address] [place] [address] Care Team Providers Care Family Consumer Science Teacher Name Role Phone SLY SHI Primary Care Provider Assessment No assessment recorded. Plan of Treatment Reminders Order Date Submit Date Provider Last Modified By Organization Details Last Modified Time Details Appointments None recorded. Lab None recorded. Referral None recorded. Procedures None recorded. Surgeries septoplasty (SURG) 2023 024 [email or web address] Not available 4 14:24:51 submucous resection inferior turbinate (SURG) 2023 024 [email or web address] Not available 4 14:24:51 Imaging None recorded. Medication Orders None recorded. Patient TargetsNo targets recorded. Patient InstructionsNo instructions recorded. Reason for Referral None Reported. Results Created Date Observation Date Name Description Value Unit Range Abnormal Flag Note LastModifiedBy Organization Detail LastModifiedTime Result Notes None recorded. Problems Name Problem SNOMED Code Status Onset Date Resolution Date Notes Provider Name and Address Organization Details Recorded Time Deviated nasal septum 024384561 Active 2023 Lamonte Silva MD [address] [place] [address], [place], [address], [email or web address] 4 15:26:43 Hypertrophy of nasal turbinates 24172123 Active 2023 Lamonte Silva MD [address], [place], [address], [email or web address] 4 15:26:52 Problem Notes None recorded. Procedures Surgical History Date Name Laterality Status Provider Name and Address Organization Details Recorded Time 4 reduction of nasal turbinate completed Trini Gerard RN [email or web address] 06/01/2024 17:08:19 SEPTOPLASTY (SURG) completed Trini Gerard RN [place] [facility] 06/01/2024 17:07:40 Imaging Results None recorded. Procedure Notes None recorded. Medical Equipment None Reported. Allergies No known drug allergies Medications Name Sig Start Date Stop Date Status Note LastModified by Organization Details LastModified Time cyclobenzap rine 10 mg tablet TAKE 1 TABLET BY MOUTH THREE TIMES DAILY FOR 7 DAYS NEEDED active Not Available Not Available No t Available lamotrigine 200 mg tablet TAKE 1 TABLET BY MOUTH TWICE DAILY active Not Available Not Available No t Available cetirizine 10 mg tablet TAKE 1 TABLET BY MOUTH DAILY active Not Available Not Available No t Available ibuprofen 800 mg tablet TAKE 1 TABLET BY MOUTH EVERY 8 HOURS FOR 10 DAYS active Not Available Not Available No t Available sumatriptan 100 mg tablet TAKE 1 TABLET BY MOUTH 1 TIME AT ONSET OF MIGRAINE. MAY REPEAT AFTER 2 HOURS. IF HEADACHE RETURNS. NOT TO EXCEED 200 MG 2 TABLETS IN 24 HOURS active Not Available Not Available No t Available sertraline 100 mg tablet TAKE 1 TABLET BY MOUTH DAILY active Not Available Not Available No t Available hydroxyzine HCl 50 mg tablet TAKE 1 TABLET BY MOUTH TWICE DAILY active Not Available Not Available No t Available phentermine 37.5 mg tablet TAKE 1 TABLET BY MOUTH EVERY DAY 05/06 completed Not Available Not Available Not Available amlodipine 5 mg tablet TAKE 1 TABLET BY MOUTH DAILY active Not Available Not Available No t Available estradiol-n orethindron e acet 1 mg-0.5 mg tablet TAKE 1 TABLET BY MOUTH EVERY DAY active Not Available Not Available No t Available levothyroxi ne 100 mcg tablet TAKE 1 TABLET BY MOUTH EVERY DAY active Not Available Not Available No t Available hydrocodone 7.5 mg-acetamin ophen 325 mg tablet TAKE 1 TABLET BY MOUTH EVERY 4 HOURS NEEDED FOR PAIN active Not Available Not Available No t Available buspirone 10 mg tablet TAKE 1 TABLET BY MOUTH TWICE DAILY active Not Available Not Available No t Available montelukast 10 mg tablet TAKE 1 TABLET BY MOUTH DAILY active Not Available Not Available No t Available methylpredn isolone 4 mg tablets in a dose pack FOLLOW PACKAGE DIRECTION S 05/05 completed Not Available Not Available Not Available bupropion HCl XL 300 mg 24 hr tablet, extended release TAKE 1 TABLET BY MOUTH DAILY active Not Available Not Available No t Available bupropion HCl XL 150 mg 24 hr tablet, extended release TAKE 1 TABLET BY MOUTH EVERY DAY IN THE MORNING 05/05 completed Not Available Not Available Not Available estradiol-n orethindron e acet 0.5 mg-0.1 mg tablet TAKE 1 TABLET BY MOUTH DAILY 05/05 completed Not Available Not Available Not Available Symbicort 80 mcg-4.5 mcg/actuati on HFA aerosol inhaler INHALE 2 PUFFS BY MOUTH EVERY 12 HOURS active Not Available Not Available No t Available quetiapine ER 200 mg tablet,exte nded release 24 hr TAKE 1 TABLET BY MOUTH DAILY active Not Available Not Available No t Available quetiapine ER 50 mg tablet,exte nded release 24 hr TAKE 2 TABLETS BY MOUTH DAILY active Not Available Not Available No t Available Vitals Date Recorded Body height Body mass index (BMI) Body weight Body temperature Provider Name and Address Organization Details Last Updated DateTime 05/05/2024 160.02 cm 37.4 kg/m2 60119.99 g 98 [degF] Trini Gerard RN [facility] 05/05/2024 15:01:04 Date Recorded Body height Body mass index (BMI) Body weight Body temperature Provider Name and Address Organization Details Last Updated DateTime 06/02/2024 160.02 cm 36.9 kg/m2 54069.65 g 97.8 [degF] Trini Gerard RN [facility] 06/02/2024 14:06:07 Social History Question Answer Notes LastModified by Organizat ion Details LastModified Time Tobacco Smoking Status Never Smoker Trini Gerard RN null, [facility] 05/05/2024 14:57:21 What Is Your Level Of Alcohol Consumption? None [email or web address] Information not available 05/05/2024 Sex: Unknown Functional Status None recorded. Mental Status None recorded. Family History Nothing Reported Notes:NO ENT Medical History Condition Response SLEEP DISORDER Y Gynecological HistoryNo gynecological history recorded. Obstetrics History GPAL:G 0 P 0 0 0 0 Past Encounters Encounter ID Performer Location Encounter Start Date Encounter Closed Date Diagnosis/Indication Diagnosis SNOMED-CT Code Diagnosis ICD10 Code Diagnosis Note [id number] Lamonte Silva MD [facility] [place] [address] [place] [address] 05/05/2024 14:29:15 05/18/2024 10:22:15 Deviated nasal septum 252709986 J34.2 Hypertroph y of nasal turbinates 26813516 J34.3 [id number] Lamonte Silva MD [facility] [place] [address] [place] [address] 06/02/2024 14:02:40 06/02/2024 14:20:05 Postoperative visit [id number] Z48.89 05/24/2024 postoperat deena from a septoplast y and turbinate reduction. Reports improvemen t in her symptoms. Discussed that she is able to resume use of her CPAP if not already done so. Did advise following up with her sleep medicine for a repeat sleep study if her sleep apnea is secondary to her deviated septum. Health Concerns Section Related Observation LastModified by Organization Detai ls LastModified Time None Recorded Concern Status LastModified by Organization Details LastModified Time None Recorded Advance Directives Directive None Recorded Payers Encounter Date Sequence Insurance Name Policy Number Policy Kitchen Covered Member ID Kitchen Member ID Guarantor Name 05/05/2024 1 [place] [id number] Miki Boyer [id number] Emilie Boyer 06/02/2024 1 [place] [id number] Miki Boyer [id number] Emilie Boyer Notes Date Note Type Note Provider Name and Address Organization Details Recorded Time 05/05/2024 text/html this patient has nasal obstruction which complicates her nasal CPAP usage. She has sinus drainage as well and thought that she had narrow sinus passageway Lamonte Silva MD [address] [place] [address], [address] [place] [address], [place], [address], [facility] [employer] [facility] 05/05/2024 15:27:15 06/02/2024 text/html This patient presents to the office for her postoperative visit from a septoplasty in turbinate reduction that was completed on 05/24/2024. She does report improvement in her breathing and lessening of her sinus drainage. She reports blowing her nose without difficulty. She reported having a nasal obstruction that was affecting her CPAP use. Trini Morales, INFECTIOUS DISEASES PHYSICIAN [address] [facility], [facility] [address], [place], [address], [facility] [employer] [facility] 06/02/2024 14:19:40 OBGyn Episode No OBEpisode recorded.
--- OUTSIDE RECORDS SUMMARY | 2024-10-25 21:50 | XMS_ITS | Clinical Summary ---
Author Organization [facility] Address [address] [place] [address] Phone Care Team Providers Care Jacquard Card Lacer Name Role Phone Avril Avina MD Primary Care Provider +1- [phone] Allergies No known active allergies Medications hydrOXYzine (ATARAX) 50 MG Tablet Take 50 mg by mouth every 6 hours as needed. Active SUMAtriptan (IMITREX) 100 MG Tablet Take 100 mg by mouth daily as needed for Migraine. Use as directed. May repeat dose in 2 hours if headache recurs. Active topiramate (TOPAMAX) 25 MG Tablet Take 25 mg by mouth 2 times daily. Active lamoTRIgine (LaMICtal) 200 MG Tablet Take 200 mg by mouth 2 times daily. Active albuterol (Ventolin HFA) 108 (90 Base) MCG/ACT Aerosol Solution take 2 Puffs by inhalation every 6 hours as needed. Active levothyroxine (SYNTHROID) 100 MCG Tablet Take 100 mcg by mouth every morning (before breakfast). Active Fluticasone-Tai meterol (ADVAIR DISKUS IN) take 1 Puff by inhalation as needed. Active Cetirizine HCl (ZYRTEC PO) Take by mouth daily. Active Ibuprofen (ADVIL PO) Take by mouth. PATIENT REPORTED SHE HAS BEEN TAKING AND DID NOT REALIZE IT WAS AN NSAID, HER LAST DOSE WAS YESTERDAY 05/17/2024. INSTRUCTED PATIENT TO CALL DR. CARTER'S OFFICE TO REPORT AND PST SENT EMAIL TO [facility] AT DR. CARTER'S OFFICE, SURGERY IS SCHEDULED FOR 05/24/2024. Active Family History Medical History Relation Name Comments Cancer Mother UTERINE Relation Name Status Comments Father Alive Mother Alive Social History Tobacco Use Types Packs/Day Years Used Date Smoking Tobacco: Never Smokeless Tobacco: Never Tobacco Cessation:Counseling Given: Not Answered Alcohol Use Standard Drinks/Week Comments Not Currently 0 (1 standard drink = 0.6 oz pur e alcohol) Comments Unknown Sex and Gender Information Value Date Recorded Sex Assigned at Not on file Legal Sex Female 11:11 PM CDT Gender Identity Not on file Sexual Orientation Not on file Last Filed Vital Signs Vital Sign Reading Time Taken Comments Blood Pressure 152/88 05/24/2024 1:15 PM SAWMILL WORKER Pulse 84 05/24/2024 1:15 PM SAWMILL WORKER Temperature 36.5 C (97.7 F) 05/24/2024 12:53 PM SAWMILL WORKER Respiratory Rate 16 05/24/2024 1:15 PM SAWMILL WORKER Oxygen Saturation 95% 05/24/2024 1:15 PM SAWMILL WORKER Inhaled Oxygen Concentration - - Weight 93.5 kg (206 lb 3 oz) 05/24/2024 8:45 AM SAWMILL WORKER Height 160 cm (5' 3 ) 05/24/2024 8:45 AM SAWMILL WORKER Body Mass Index 36.52 05/24/2024 8:45 AM SAWMILL WORKER Plan of Treatment Health Maintenance Due Date Last Done Comments Hepatitis C Virus (HCV) Screening 1969 Mammogram 1969 Hepatitis B Immunization (1 of 3 - 19+ 3-dose series) 01/10/1988 Pap Smear 1990 Cervical Cancer Screening (CCS) 1999 HPV/Cotest 1999 Colonoscopy 2014 Colorectal Cancer Screening 2014 Cologuard 2019 Immunochemical Fecal Occult Blood 2019 Pneumococcal Immunization (5 0+ years) (1 of 1 - PCV) 2019 SARS-COV-2 Immunization (1 - season) 2024 Zoster Immunization (2 of 2) 05/17/2024 03/22/2024 Influenza Immunization (Seas on Ended) 2025 04/25/2019 Respiratory Syncytial Virus (RSV) Immunization (Adult) (1 - 1-dose 75+ series) 01/10/2044 TdaP Immunization Completed 02/15/2019 Meningococcal Immunization (ACWY) Aged Out No longer eligible based on patient's age to complete this topic Rotavirus Immunization Aged Out No lo nger eligible based on patient's age to complete this topic Insurance [facility] Care Teams Jacquard Card Lacer Relationship Specialty Start Date End Date Avril Avina MD [address] [facility] [address] [place] [address] PCP - General Family Medicine 05/23/24
[2024-10-25] MEDS: METOCLOPRAMIDE HCL INJ 10 MG/2 ML VIAL IM (23:12)
[2024-10-25] MEDS: KETOROLAC 10 MG TABLET PO (23:54)
[2024-10-25] MEDS: droPERidol 5 MG/2 ML VIAL IM (23:55)
[2024-10-25] MEDS: dexAMETHasone 10 MG/10 ML INTENSOL CONC (*BKC) PO (23:55)
--- OUTSIDE RECORDS SUMMARY | 2024-10-25 23:58 | XMS_ITS | Referral Summary ---
Author Organization [facility] Address [address] [place] [address] Care Team Providers Care Supervisor Kennel Name Role Phone Avril Avina MD Primary [...] 1 tablet (100 mcg total) by mouth landscape crew member before breakfast 30 tablet 3 0 Active [...] 07/23/2021 Assessment & Plan (07/23/2021 12:04 PM FARMWORKER FRUIT): The patient was diagnosed with obstructive sleep apnea in the distant past. I will have the patient sign a release to obtain the old sleep studies from [facility]. She currently is using CPAP at 5 [...] symptoms. Assessment & Plan (08/05/2019 12:25 PM FARMWORKER FRUIT): Continue with Flonase twice a day. Add Zyrtec in the morning. Assessment & Plan (07/07/2019 8:59 AM FARMWORKER FRUIT): I will obtain CBC with differential, IgE level, full set of PFTs with methacholine challenge test. Start her on Flonase twice a day. Obtain records from ENT. Depending on the labs and PFTs we will make further management plan. Migraine with aura 01/03/2014 [facility]09[facility]26/2016[facility] Assessment [...] on file Legal Sex Female 12:23 AM FARMWORKER FRUIT Gender Identity Not on file Sexual Orientation Not on file Last Filed Vital Signs Vital Sign Reading Time Taken Comments Blood Pressure 124/64 07/23/2021 11:29 AM FARMWORKER FRUIT Pulse 94 07/23/2021 11:29 AM FARMWORKER FRUIT Temperature 36.2 C (97.2 F) 07/23/2021 11:29 AM FARMWORKER FRUIT Respiratory Rate 18 07/23/2021 11:29 AM FARMWORKER FRUIT Oxygen Saturation 97% 07/23/2021 11:29 AM FARMWORKER FRUIT Inhaled Oxygen Concentration - - Weight 86.2 kg (190 lb) 07/23/2021 11:29 AM FARMWORKER FRUIT Height 157.5 cm (5' 2 ) 04/03/2020 3:22 PM CDT Body Mass Index 34.75 04/03/2020 3:22 PM CDT Plan of Treatment Not on file Insurance [employer] ANTHEM ACCESS CHOICE Care Teams Supervisor Kennel Relationship Specialty Start Date End Date Avril Avina MD [address] [place], [place] [id number] PCP - General Family Medicine 04/25/19
--- OUTSIDE RECORDS SUMMARY | 2024-10-25 23:58 | XMS_ITS | Clinical Summary ---
Author Organization [facility] Address [address] [place] [address] Phone Care Team Providers Care Metal Hanging Supervisor Name Role Phone Avril Avina MD Primary Care Provider +1- [phone] Allergies No known active allergies Medications hydrOXYzine [...] Comments Blood Pressure 152/88 05/24/2024 1:15 PM CRUSHER MACHINE OPERATOR Pulse 84 05/24/2024 1:15 PM CRUSHER MACHINE OPERATOR Temperature 36.5 C (97.7 F) 05/24/2024 12:53 PM CRUSHER MACHINE OPERATOR Respiratory Rate 16 05/24/2024 1:15 PM CRUSHER MACHINE OPERATOR Oxygen Saturation 95% 05/24/2024 1:15 PM CRUSHER MACHINE OPERATOR Inhaled Oxygen Concentration - - Weight 93.5 kg (206 lb 3 oz) 05/24/2024 8:45 AM CRUSHER MACHINE OPERATOR Height 160 cm (5' 3 ) 05/24/2024 8:45 AM CRUSHER MACHINE OPERATOR Body Mass Index 36.52 05/24/2024 8:45 AM CRUSHER MACHINE OPERATOR Plan of Treatment Health Maintenance Due Date [...] patient's age to complete this topic Insurance [facility] Care Teams Metal Hanging Supervisor Relationship Specialty Start Date End Date Avril Avina MD [address] [facility] [address] [place] [address] PCP - General Family Medicine 05/23/24
--- OUTSIDE RECORDS SUMMARY | 2024-10-25 23:58 | XMS_ITS | Clinical Summary ---
Author Organization [facility] Address [address] [place] [address] Care Team Providers Care Legal Billing Clerk Name Role Phone Avril Avina MD Primary Care Provider + Source Comments [facility] [employer],non-owned Affiliates and Associated Physician Practices is amultiple site organization consisting of ambulatory clinics and hospital sitesin [place], [place], [place] and [place]. This disclosure is being madepursuant to the Care Everywhere program and may not contain all information available regarding this patient. Last updated 18.[facility] [employer] Allergies No known active allergies Medications * [...] complete this topic Insurance ANTHEM Care Teams Legal Billing Clerk Relationship Specialty Start Date End Date Avril Avina MD [address] [place] [address] PCP - General Family Medicine 10/01/17
--- OUTSIDE RECORDS SUMMARY | 2024-10-25 23:58 | XMS_ITS | Encounter Summary ---
Author Organization [facility] Address [address] [place] [address] Phone Care Team Providers Care Environmental Technical Officer Name Role Phone Avril Avina MD Primary Care Provider +1- [phone] Encounter Details Date Type Department Care Team (Latest Contact Info) Description 05/18/2024 [facility] [address] [place] [id number] Lamonte Silva MD [address] [facility] [address] [place], [place] [id number] Pre-op testing (Primary Dx) Social History Tobacco [...] Results * POTASSIUM (K) (05/23/2024 1:21 PM MARINE ENGINEERING PROFESSOR) POTASSIUM 3.8 3.5 - 5.1 mmol/L 05/23/2024 2:02 PM MARINE ENGINEERING PROFESSOR [facility] Blood Venipuncture / Unknown 05/23/2024 1:21 PM MARINE ENGINEERING PROFESSOR 05/23/2024 1:32 PM MARINE ENGINEERING PROFESSOR us Lamonte Silva MD CHEMISTRY ORDERABLES Final Re sult [facility] [address] [place] [address] documented in this encounter Visit Diagnoses Diagnosis Pre-op testing- Primary Preoperative examination, unspecified documented in this encounter Care Teams Environmental Technical Officer Relationship Specialty Start Date End Date Avril Avina MD [address] [facility] [address] [place] [address] PCP - General Family Medicine 05/23/24 documented as of this encounter
--- OUTSIDE RECORDS SUMMARY | 2024-10-25 23:58 | XMS_ITS | Clinical Summary ---
Author Organization [facility] Address [address] [place] [address] Care Team Providers Care Software Tools Engineer Name Role Phone Avril Avina MD Primary [...] 1 tablet (100 mcg total) by mouth admin dir before breakfast 30 tablet 3 0 Active [...] 07/23/2021 Assessment & Plan (07/23/2021 12:04 PM INDUSTRIAL ROOF PLUMBER): The patient was diagnosed with obstructive sleep apnea in the distant past. I will have the patient sign a release to obtain the old sleep studies from [facility]. She currently is using CPAP [...] symptoms. Assessment & Plan (08/05/2019 12:25 PM INDUSTRIAL ROOF PLUMBER): Continue with Flonase twice a day. Add Zyrtec in the morning. Assessment & Plan (07/07/2019 8:59 AM INDUSTRIAL ROOF PLUMBER): I will obtain CBC with differential, IgE level, full set of PFTs with methacholine challenge test. Start her on Flonase twice a day. Obtain records from ENT. Depending on the labs and PFTs we will make further management plan. Migraine with aura 01/03/2014 [facility] Assessment & [...] on file Legal Sex Female 12:23 AM INDUSTRIAL ROOF PLUMBER Gender Identity Not on file Sexual Orientation Not on file Obstetrics History Last Filed Vital Signs Vital Sign Reading Time Taken Comments Blood Pressure 124/64 07/23/2021 11:29 AM INDUSTRIAL ROOF PLUMBER Pulse 94 07/23/2021 11:29 AM INDUSTRIAL ROOF PLUMBER Temperature 36.2 C (97.2 F) 07/23/2021 11:29 AM INDUSTRIAL ROOF PLUMBER Respiratory Rate 18 07/23/2021 11:29 AM INDUSTRIAL ROOF PLUMBER Oxygen Saturation 97% 07/23/2021 11:29 AM INDUSTRIAL ROOF PLUMBER Inhaled Oxygen Concentration - - Weight 86.2 kg (190 lb) 07/23/2021 11:29 AM INDUSTRIAL ROOF PLUMBER Height 157.5 cm (5' 2 ) 04/03/2020 [...] patient's age to [place] [address] [employer] CHOICE ANTHEM ACCESS CHOICE ANTHEM ACCESS CHOICE Care Teams Software Tools Engineer Relationship Specialty Start Date End Date Avril Avina MD [address] [place] [address] PCP - General Family Medicine 04/25/19
[2024-10-26] VITALS (8 sets, daily range): BP systolic 124–143; BP diastolic 82–90; PULSE 74; RESP 16; TEMP 36.4; O2SAT 94–97
--- NOTE | 2024-10-26 02:12 | ED.HA ---
HPI - Headache General Chief Complaint: Headache Stated Complaint: Migraine, High BP, diarrhea Time Seen by Provider: 10/25/24 22:56 History of Present Illness HPI Narrative: Patient with h/o migraines p/w migraine; started earlier tonight, tried 2 sumatriptan without much improvement. Nauseous with light sensitivity. No recent trauma; feels like usual migraines but this isn't going away. Worried her blood pressure may be high. Related Data Home Medications ?Medication ?Instructions ?Recorded ?Confirmed ?Last Taken ?Type lamotrigine 200 mg tablet 200 mg PO BID 01/10/20 02/24/24 09/13/20 06:30 History buspirone 10 mg tablet 10 mg PO TID 02/05/23 02/24/24 Unknown History estradiol-norethindrone acet 0.5 1 tablet PO DAILY 02/24/24 Unknown History mg-0.1 mg tablet sertraline 200 mg capsule 50 mg PO BID 04/12/24 04/12/24 Unknown History Allergies Allergy/AdvReac Type Severity Reaction Status Date / Time No Known Allergies Allergy Mild Verified 10/25/24 21:48 Review of Systems Review of Systems: All systems reviewed & are unremarkable except as noted in HPI and below PMFSH Past Medical History Medical History Anxiety Arthritis Avulsion fracture Biceps strain Biceps tendon rupture Bicipital tendinitis of right shoulder Bipolar 1 disorder Breast ptosis Depression Encounter for general adult medical examination without abnormal findings Exposure to phentermine Hyperthyroidism Hypothyroidism Metacarpophalangeal joint pain of right hand Micromastia Nasal drainage Psoriasis Right shoulder pain Right shoulder pain Skin laxity SLAP tear of shoulder Tendinitis of right rotator cuff Trigger finger of right hand Trigger point with back pain Vision abnormalities Family History Family History Mother Depression Father Family history of sleep apnea Social History Social History Social History: Smoking status: Never smoker Second hand tobacco smoke exposure: No Alcohol intake: current Substance use: never Substance use type: does not use Do You Feel Safe in your Home?: Yes Lack of Transportation: No Lack of Food: Never True Current Housing: I Have Housing Concerned About Future Housing: No Difficulty Paying Gas/Electric Bills: No Difficulty Paying for Meds: No Currently Unemployed: No Education: Don't Know Difficulty w/ Childcare or Family Care: No Living arrangements: with family Occupation/Education: occupation Gender identity (if verbalized by the patient): Female Sexual Orientation (if Verbalized by the Patient): Straight or Heterosexual Spiritual care concerns: No Exam Narrative: EXAMINATION OF ORGAN SYSTEMS/BODY AREAS: Constitutional: Vital signs per nursing GENERAL: Appears uncomfortable with towel over her head HEAD: Normal with no signs of head trauma. EYES: EOMI, conjunctiva normal ENT: Hearing grossly intact LUNGS: Nonlabored breathing. HEART: [Regular rate and rhythm] ABD: [Soft], [nontender to palpation] EXT: Normal range of motion SKIN: [No rashes or lesions.] NEURO: [Alert and oriented x 3. No gross focal sensory or strength deficits.] PSYCH: Normal affect Course Vital Signs Vital signs: Vital Signs Temperature 97 F L 10/25/24 22:06 Pulse Rate 74 10/25/24 22:06 Respiratory Rate 15 10/25/24 22:06 Blood Pressure 145/93 H 10/25/24 22:06 Pulse Oximetry 99 10/25/24 22:06 Oxygen Delivery Room Air 10/25/24 22:06 Temperature 97.6 F 10/26/24 01:08 Pulse Rate 74 10/26/24 01:08 Respiratory Rate 16 10/26/24 01:08 Blood Pressure 124/82 10/26/24 01:08 Pulse Oximetry 96 10/26/24 01:08 Oxygen Delivery Room Air 10/25/24 22:06 MDM - Headache MDM Narrative Medical decision making narrative: 54F presents to the emergency department for headache. Patient is hemodynamically stable. No focal neurological or cranial nerve deficits on exam. No meningeal signs. The headache was gradual in onset, it is not exertional and does not appear consistent with subarachnoid hemorrhage or intracranial bleeding. No trauma. Patient is given Reglan. On reevaluation, the patient feels significantly better; I will trial one more round with droperidol, toradol, and dexamethasone to help prevent future migraine. Patent now smiling with the headache resolved; ambulating with normal steady gait. No neurological deficits. Patient is comfortable going home for outpatient follow-up with primary care physician and/or neurology and provided with strict return precautions, especially for worsening headaches, neck pain/stiffness, fever or weakness, numbness/tingling or persistent vomiting Discharge Plan Discharge Clinical Impression: Migraine Patient Disposition: Home Condition: Stable Instructions: Migraine Headache (ED) Additional Instructions: Please follow-up with your doctor and you can always come back to the hospital if your migraine returns or worsens. Patient Language: Lao Prescriptions: New ondansetron 4 mg tablet,disintegrating 4 mg PO Q8H PRN (Reason: nausea and vomiting) Qty: 10 0RF No Action sumatriptan succinate 100 mg tablet See Rx Instructions .ROUTE .COMPLEX Qty: 27 0RF Dose Instruction: TAKE 1 TABLET BY MOUTH 1 TIME AT ONSET OF MIGRAINE. MAY REPEAT AFTER 2 HOURS. IF HEADACHE RETURNS. NOT TO EXCEED 200 MG 2 TABLETS IN 24 HOURS Rx Instructions: TAKE 1 TABLET BY MOUTH 1 TIME AT ONSET OF MIGRAINE. MAY REPEAT AFTER 2 HOURS. IF HEADACHE RETURNS. NOT TO EXCEED 200 MG 2 TABLETS IN 24 HOURS montelukast 10 mg tablet 10 mg PO DAILY Qty: 90 1RF Rx Instructions: TAKE 1 TABLET BY MOUTH DAILY budesonide-formoterol [Symbicort] 80-4.5 mcg/actuation HFA aerosol inhaler See Rx Instructions .ROUTE .COMPLEX Qty: 10.2 1RF Dose Instruction: INHALE 2 PUFFS BY MOUTH EVERY 12 HOURS Rx Instructions: INHALE 2 PUFFS BY MOUTH EVERY 12 HOURS lamotrigine 200 mg tablet 200 mg PO BID sertraline 200 mg capsule 50 mg PO BID Patient Comments: as per psych buspirone 10 mg tablet 10 mg PO TID levothyroxine 100 mcg tablet See Rx Instructions .ROUTE .COMPLEX Qty: 90 2RF Dose Instruction: TAKE 1 TABLET(100 MCG) BY MOUTH DAILY Rx Instructions: TAKE 1 TABLET(100 MCG) BY MOUTH DAILY estradiol-norethindrone acet 0.5-0.1 mg tablet 1 tablet PO DAILY Patient Comments: per AUTO DESIGN DETAILER amlodipine 5 mg tablet See Rx Instructions .ROUTE .COMPLEX Qty: 90 1RF Dose Instruction: TAKE 1 TABLET BY MOUTH DAILY Rx Instructions: TAKE 1 TABLET BY MOUTH DAILY bupropion HCl 300 mg tablet extended release 24 hr 300 mg PO QAM Qty: 30 0RF hydroxyzine HCl 50 mg tablet 50 mg PO BID Qty: 60 0RF cetirizine 10 mg tablet See Rx Instructions .ROUTE .COMPLEX Qty: 90 0RF Dose Instruction: TAKE 1 TABLET BY MOUTH DAILY Rx Instructions: TAKE 1 TABLET BY MOUTH DAILY Follow-up/Referrals: Avril Avina MD [Primary Care Provider] - 2 Days
== END 2024-10-26 01:10 | disposition home or self-care (01) ==
LOC: ANHED 23:56
PROVIDERS: Emergency Provider Emergency Medicine; PCP Family Medicine
DX: G43.909 Migraine, unspecified, not intractable, without status migrainosus (principal); F41.9 Anxiety disorder, unspecified; M19.90 Unspecified osteoarthritis, unspecified site; F31.9 Bipolar disorder, unspecified
CPT/HCPCS: 96372; 99284; A9270; J1790; J2765; J8540

== ENCOUNTER 2024-12-16 08:54 | Outpatient (CLI) | payer BC, SELFPAY ==
[2024-12-16 10:00] LABS: Hematocrit 43.7 % (37.0-47.0); Hemoglobin 15.1 g/dL (12.0-15.0); Mean Corpuscular HGB Conc 34.6 g/dl (32-36); Mean Corpuscular Hemoglobin 30.3 pg (26-34); Mean Corpuscular Volume 87.6 fl (80-100); Mean Platelet Volume 10.2 fl (7.4-10.4); Platelet Count Result 256 k/mm3 (150-375); Red Blood Count 4.99 M/mm3 (4.2-5.4); Red Cell Distribution Width 13.4 % (11.5-14.5); White Blood Count 5.2 K/mm3 (4.5-10.0)
[2024-12-16 10:12] LABS: Alanine Aminotransferase 16 U/L (6-35); Albumin Level 4.5 g/dL (3.5-5.1); Alkaline Phosphatase 44 U/L (38-126); Anion Gap 10 mmol/L (4-12); Aspartate Amino Transferase 29 U/L (14-36); Bilirubin,Total 0.5 mg/dL (0.2-1.3); Blood Urea Nitrogen 11 mg/dL (7-17); Calcium 9.7 mg/dL (8.4-10.2); Carbon Dioxide 23 mmol/L (22-30); Chloride 107 mmol/L (98-107); Cholesterol 213 mg/dL (0-200); Estimated Glomerular Filt Rate > 60; Glucose 91 mg/dL (65-110); HDL Direct 55 mg/dL; Potassium 4.2 mmol/L (3.4-5.0); Sodium 140 mmol/L (137-145); Total Protein 7.4 g/dL (6.3-8.2); Triglycerides 82 mg/dL (<150)
[2024-12-16 10:23] LABS: LDL Cholesterol Direct 120 mg/dL
[2024-12-16 10:48] LABS: Free T4 Free Thyroxine. 1.14 ng/dL (0.78-2.19)
== END 2024-12-16 08:55 | disposition home or self-care (01) ==
LOC: ANHLAB 08:55
PROVIDERS: PCP Family Medicine; Visit Provider Physician Assistant
DX: E03.9 Hypothyroidism, unspecified (principal); E78.5 Hyperlipidemia, unspecified; F41.9 Anxiety disorder, unspecified; D58.2 Other hemoglobinopathies
CPT/HCPCS: 36415; 80053; 80061; 84439; 84443; 85027

== ENCOUNTER 2024-12-21 16:19 | Outpatient (CLI) | payer BC, SELFPAY ==
--- OUTSIDE RECORDS SUMMARY | 2024-12-21 16:23 | XMS_ITS | Encounter Summary ---
Author Organization [facility] Address [address] [place] [address] Phone Care Team Providers Care Wash Crew Person Name Role Phone Avril Avina MD Primary Care Provider +1- [phone] Encounter Details Date Type Department Care Team (Latest Contact Info) Description 05/18/2024 [facility] [address] [place] [id number] Lamonte Silva MD [address] [place], [place] [id number] Pre-op testing (Primary Dx) Social History Tobacco [...] Results * POTASSIUM (K) (05/23/2024 1:21 PM COLD STORAGE WORKER) POTASSIUM 3.8 3.5 - 5.1 mmol/L 05/23/2024 2:02 PM COLD STORAGE WORKER [facility] Blood Venipuncture / Unknown 05/23/2024 1:21 PM COLD STORAGE WORKER 05/23/2024 1:32 PM COLD STORAGE WORKER us Lamonte Silva MD CHEMISTRY ORDERABLES Final Re sult [facility] [place] [address] documented in this encounter Visit Diagnoses Diagnosis Pre-op testing- Primary Preoperative examination, unspecified documented in this encounter Care Teams Wash Crew Person Relationship Specialty Start Date End Date Avril Avina MD [address] [facility] [address] [place] [address] PCP - General Family Medicine 05/23/24 documented as of this encounter
--- OUTSIDE RECORDS SUMMARY | 2024-12-21 16:23 | XMS_ITS | Clinical Summary ---
Author Organization [facility] Address [address] [place] [address] Phone Care Team Providers Care Door And Arrival Attendant Name Role Phone Avril Avina MD Primary Care Provider +1- [phone] Allergies No known active allergies Medications hydrOXYzine [...] Comments Blood Pressure 152/88 05/24/2024 1:15 PM SPOOLER OPERATOR AUTOMATIC Pulse 84 05/24/2024 1:15 PM SPOOLER OPERATOR AUTOMATIC Temperature 36.5 C (97.7 F) 05/24/2024 12:53 PM SPOOLER OPERATOR AUTOMATIC Respiratory Rate 16 05/24/2024 1:15 PM SPOOLER OPERATOR AUTOMATIC Oxygen Saturation 95% 05/24/2024 1:15 PM SPOOLER OPERATOR AUTOMATIC Inhaled Oxygen Concentration - - Weight 93.5 kg (206 lb 3 oz) 05/24/2024 8:45 AM SPOOLER OPERATOR AUTOMATIC Height 160 cm (5' 3) 05/24/2024 8:45 AM SPOOLER OPERATOR AUTOMATIC Body Mass Index 36.52 05/24/2024 8:45 AM SPOOLER OPERATOR AUTOMATIC Plan of Treatment Health Maintenance Due Date Last Done Comments Hepatitis C Virus (HCV) Screening 1969 Mammogram 1969 Hepatitis B Immunization (1 of 3 - 19+ 3-dose series) 01/10/1988 Pap Smear 1990 Cervical Cancer Screening (CCS) 1999 HPV/Cotest 1999 Cologuard 2014 Colonoscopy 2014 Colorectal Cancer Screening 2014 Immunochemical Fecal Occult Blood 2014 Pneumococcal Immunization (5 0+ years) (1 of 1 - PCV) 2019 SARS-COV-2 Immunization (1 - season) 2024 Zoster Immunization (2 of 2) 05/17/2024 03/22/2024 Influenza Immunization (Seas on Ended) 2025 04/25/2019 Respiratory Syncytial Virus (RSV) Immunization (Adult) (1 - 1-dose 75+ series) 01/10/2044 TdaP Immunization Completed 02/15/2019 Human Papillomavirus (HPV) Immunization Aged Out No longer eligible b ased on patient's age to complete this topic Meningococcal Immunization (ACWY) Aged Out No longer eligible based on patient's age to complete this topic Rotavirus Immunization Aged Out No lo nger eligible based on patient's age to complete this topic Insurance [facility] Care Teams Door And Arrival Attendant Relationship Specialty Start Date End Date Avril Avina MD [address] [place], [place] [id number] PCP - General Family Medicine 05/23/24
[2024-12-21 18:09] LABS: Hematocrit 41.9 % (37.0-47.0); Hemoglobin 14.4 g/dL (12.0-15.0); Mean Corpuscular HGB Conc 34.4 g/dl (32-36); Mean Corpuscular Hemoglobin 30.5 pg (26-34); Mean Corpuscular Volume 88.8 fl (80-100); Platelet Count Result 279 k/mm3 (150-375); Red Blood Count 4.72 M/mm3 (4.2-5.4); White Blood Count 5.8 K/mm3 (4.5-10.0)
[2024-12-21 18:52] LABS: Thyroid Stimulating Hormone 0.927 uIU/mL (0.465-4.680)
[2024-12-21 19:13] LABS: Vitamin B12 > 1000.0 pg/mL (239-931)
== END 2024-12-21 16:20 | disposition home or self-care (01) ==
LOC: ANHLAB 16:21
PROVIDERS: PCP Family Medicine; Visit Provider Student in an Organized Health Care Education/Training Program
DX: R53.83 Other fatigue (principal); E03.9 Hypothyroidism, unspecified; R23.2 Flushing; R51.9 Headache, unspecified
CPT/HCPCS: 36415; 82306; 82607; 82670; 83001; 84443; 85027